=== PATIENT | male | born 1940 | race Caucasian/White ===

== ENCOUNTER → 2017-08-24 | Outpatient (CLI) | payer MEDICARE ==
[~2017-08-24] MED LIST: BENADRYL ALLERG25 M5 PO; PREVACID SOLUTA30 MG PO; PRILOSEC40 M1 PO
== END | disposition home or self-care (01) ==
LOC: CT 01:07
DX: K76.0 Fatty (change of) liver, not elsewhere classified (principal); N28.1 Cyst of kidney, acquired

== ENCOUNTER 2020-10-20 08:31 | Emergency (ER) | payer OTHER ==
[~2020-10-20] VITALS: Ht 170.1 cm; Wt 83.9 kg
[2020-10-20 09:02] LABS: BILIRUBIN Negative (Negative); BLOOD Trace-Intact (Negative); CLARITY Clear (Clear); COLOR Yellow (Yellow); GLUCOSE 3+ (Negative); KETONE Trace (Negative); LEUKO ESTERASE Negative (Negative); NITRITE Negative (Negative)
[2020-10-20 09:16] LABS: RBC 16-20 rbc/hpf (0-2)
[2020-10-20 09:21] LABS: BASO # 0.1 10*3/uL (0.0-0.1); BASO % 0.9 % (0.0-1.0); EOS # 0.1 10*3/uL (0.0-0.4); EOS % 1.7 % (1.0-4.0); HEMATOCRIT 41.3 % (42.0-52.0); LYMPH # 1.2 10*3/uL (1.3-4.4); LYMPH % 18.2 % (27.0-41.0); MEAN CORPUSCULAR HGB 31.4 pg (27.0-31.0); MEAN CORPUSCULAR HGB CONC 34.1 g/dl (33.0-37.0); MEAN PLATELET VOLUME 8.5 fl (9.6-12.3); MONO # 0.5 10*3/uL (0.1-1.0); MONO % 7.9 % (3.0-9.0); NEUT # 4.6 10*3/uL (2.3-7.9); PLATELET COUNT AUTOMATED 318 10*3/uL (130-400); RED BLOOD COUNT 4.49 10*6/uL (4.50-5.90); RED CELL DISTRI WIDTH 12.7 % (0-14.5); WHITE BLOOD COUNT 6.4 10*3/uL (4.8-10.8)
[2020-10-20 09:33] LABS: ACT PARTIAL THROMBO TIME 26.6 SECONDS (20.0-32.1)
[2020-10-20 09:36] LABS: ALBUMIN 3.7 gm/dl (3.1-4.5); ALKALINE PHOSPHATASE 86 U/L (45-117); BUN 14 mg/dl (7-24); CHLORIDE 102 mmol/L (98-107); CREATININE 1.31 mg/dL (0.70-1.30); LIPASE 74 U/L (73-393); POTASSIUM 4.1 mmol/L (3.5-5.1); SGOT/AST 11 IU/L (3-35); SGPT/ALT 28 U/L (12-78); SODIUM 132 mmol/L (136-145); TOTAL PROTEIN 7.4 gm/dL (6.4-8.2)
[2020-10-20 09:37] LABS: TROPONIN I < 0.015 ng/ml (<0.045)
== END 2020-10-20 12:16 | disposition home or self-care (01) ==
LOC: ED 08:31
PROVIDERS: Emergency Medicine
DX: N20.1 Calculus of ureter (principal); Z79.899 Other long term (current) drug therapy; Z98.890 Other specified postprocedural states

== ENCOUNTER → 2022-08-03 | Outpatient (CLI) | payer OTHER ==
[2022-08-03 15:11] LABS: CREATININE 1.48 mg/dL (0.70-1.30)
== END | disposition home or self-care (01) ==
LOC: LAB 13:55 → CT 13:55
PROVIDERS: Radiology Diagnostic Radiology; ATTEND Nurse Practitioner Family
DX: Z01.812 Encounter for preprocedural laboratory examination (principal); R10.9 Unspecified abdominal pain; N28.1 Cyst of kidney, acquired

== ENCOUNTER → 2023-07-10 | Outpatient (CLI) | payer OTHER | END | disposition home or self-care (01) | LOC: CARD 02:08 | PROVIDERS: ATTEND Family Medicine | DX: I08.0 Rheumatic disorders of both mitral and aortic valves (principal) ==

== ENCOUNTER 2023-12-04 08:20 | Inpatient (IN) | payer OTHER ==
[~2023-12-04] VITALS: Ht 167.6 cm; Wt 88.5 kg
[2023-12-04 08:38] VITALS: BP 109/51
[2023-12-04 08:52] LABS: BASO % 0.2 % (0.0-1.0); EOS % 0.3 % (1.0-4.0); HEMATOCRIT 39.5 % (42.0-52.0); LYMPH # 0.8 10*3/uL (1.3-4.4); LYMPH % 6.6 % (27.0-41.0); MEAN CELL VOLUME 96.6 fl (80.0-94.0); MEAN CORPUSCULAR HGB 31.8 pg (27.0-31.0); MEAN CORPUSCULAR HGB CONC 32.9 g/dl (33.0-37.0); MEAN PLATELET VOLUME 9.3 fl (9.6-12.3); MONO # 1.1 10*3/uL (0.1-1.0); MONO % 9.2 % (3.0-9.0); NEUT # 9.8 10*3/uL (2.3-7.9); NEUT % 83.4 % (47.0-73.0); PLATELET COUNT AUTOMATED 248 10*3/uL (130-400); RED BLOOD COUNT 4.09 10*6/uL (4.50-5.90); WHITE BLOOD COUNT 11.8 10*3/uL (4.8-10.8)
[2023-12-04 09:05] LABS: ACT PARTIAL THROMBO TIME 33.6 SECONDS (20.0-32.1)
[2023-12-04 09:15] LABS: POTASSIUM 4.2 mmol/L (3.4-5.1); TOTAL PROTEIN 6.6 gm/dL (6.0-8.0)
[2023-12-04] MEDS ORDERED: ZESTRIL20 MG PO (09:36)
[2023-12-04] MEDS ORDERED: NEURONTIN300 MG PO (09:36)
[2023-12-04] MEDS ORDERED: REMERON15 M2 PO (09:36)
[2023-12-04] MEDS ORDERED: NORVASC10 MG PO (09:37)
[2023-12-04] MEDS ORDERED: MELATONIN3 MG PO (09:37)
[2023-12-04] MEDS ORDERED: ASPIRIN CHILDRE81 MG PO (09:37)
[2023-12-04] MEDS ORDERED: ZOCOR40 MG PO (09:37)
[2023-12-04] MEDS ORDERED: METFORMIN HYD1000 MG PO (09:38)
[2023-12-04] MEDS ORDERED: GLYBURIDE5 MG PO (09:38)
[2023-12-04] MEDS ORDERED: D3 DOTS50 MCG PO (09:39)
[2023-12-04] MEDS ORDERED: PROAIR RESPICL90 MCG INH (09:41)
[2023-12-04] MEDS ORDERED: Ceftriaxone Sodium 1 GM/10 ML SYR IV ONE (09:45)
[2023-12-04] MEDS ORDERED: AZITHROMYCIN 250 ML IV ONE (09:45)
[2023-12-04] MEDS ORDERED: SODIUM CHLORIDE 0.9% 1,000 ML IV SCH ×2 (09:45→15:35)
[2023-12-04 09:54] VITALS: BP 91/52
[2023-12-04] MEDS ORDERED: Ondansetron Hydrochloride 4 MG/2 ML VIAL IV PRN (11:15)
[2023-12-04] MEDS ORDERED: Magnesium Hydroxide 30 ML UDC PO PRN (11:15)
[2023-12-04] MEDS ORDERED: DEXTROSE 10 % IN WATER 250 ML IV PRN (11:15)
[2023-12-04] MEDS ORDERED: BISACODYL 10 MG SUPP R PRN (11:15)
[2023-12-04] MEDS ORDERED: ACETAMINOPHEN 325 MG TAB PO PRN (11:15)
[2023-12-04] MEDS ORDERED: ACETAMINOPHEN 650 MG SUPP R PRN (11:15)
[2023-12-04] MEDS ORDERED: Acetaminophen/Hydrocodone 5 MG/325 MG TABLET PO PRN (11:15)
[2023-12-04] MEDS ORDERED: MORPHINE Sulfate 2 MG/ML SYR IV PRN (11:15)
[2023-12-04] MEDS ORDERED: BISACODYL 5 MG TAB PO PRN (11:15)
[2023-12-04] MEDS ORDERED: TEMAZEPAM 15 MG CAP PO PRN (11:15)
[2023-12-04] MEDS ORDERED: Albuterol Sulf/Ipratropium 3 ML VIAL NEB SCH (11:30)
[2023-12-04] MEDS ORDERED: INSULIN LISPRO 1 UNIT/0.01 ML SQ SCH (11:30)
[2023-12-04] MEDS ORDERED: methylPREDNISolone sod succ 40 MG IV SCH (11:30)
[2023-12-04] MEDS ORDERED: methylPREDNISolone sod succ 40 MG VIAL IV SCH (12:00)
[2023-12-04] MEDS ORDERED: SODIUM CHLORIDE 0.9% 1,000 ML IV ONE (12:15)
[2023-12-04] MEDS ORDERED: SODIUM CHLORIDE 0.9% 1,500 ML IV ONE (13:35)
[2023-12-04 13:46] VITALS: BP 123/63
[2023-12-04] MEDS ORDERED: Nicotine 14 MG PATCH T SCH (15:00)
[2023-12-04 15:47] VITALS: BP 131/51
[2023-12-04 20:00] VITALS: BP 127/77
[2023-12-04] MEDS ORDERED: HEPARIN SODIUM 5,000 UNIT/ML VIAL SC SCH (22:00)
[2023-12-05] VITALS: BP 112/46
[2023-12-05 06:27] LABS: ACT PARTIAL THROMBO TIME 35.7 SECONDS (20.0-32.1); HEMATOCRIT 34.3 % (42.0-52.0); MEAN CELL VOLUME 98.6 fl (80.0-94.0); MEAN CORPUSCULAR HGB 32.2 pg (27.0-31.0); MEAN CORPUSCULAR HGB CONC 32.7 g/dl (33.0-37.0); MEAN PLATELET VOLUME 9.3 fl (9.6-12.3); PLATELET COUNT AUTOMATED 214 10*3/uL (130-400); RED BLOOD COUNT 3.48 10*6/uL (4.50-5.90); RED CELL DISTRI WIDTH 13.1 % (0-14.5); WHITE BLOOD COUNT 9.6 10*3/uL (4.8-10.8)
[2023-12-05 06:28] LABS: MANUAL DIFF REFLEX YES
[2023-12-05 06:31] LABS: POTASSIUM 4.3 mmol/L (3.4-5.1)
[2023-12-05 07:10] LABS: PLATELET SUFFICIENCY NORMAL (NORMAL); POLYCHROMASIA SLIGHT; TOTAL CELLS COUNTED 100 #CELLS
[2023-12-05 07:11] LABS: BURR CELLS MODERATE; OVALOCYTES FEW; SCHISTOCYTES FEW
[2023-12-05 08:00] VITALS: BP 138/80
[2023-12-05 08:05] LABS: VITAMIN D, 25-HYDROXY 54.8 ng/mL (30-100)
[2023-12-05] MEDS ORDERED: AZITHROMYCIN 250 ML IV SCH (09:00)
[2023-12-05] MEDS ORDERED: ASPIRIN, CHEWABLE 81 MG TAB PO SCH (10:00)
[2023-12-05] MEDS ORDERED: GUAIFENESIN 600 MG TAB ER PO SCH (10:00)
[2023-12-05] MEDS ORDERED: Ceftriaxone Sodium 1 GM in SYRINGE INFUSION 10 ML IV SCH (10:00)
[2023-12-05 12:00] VITALS: BP 94/65
[2023-12-05 16:00] VITALS: BP 130/52
[2023-12-05 20:00] VITALS: BP 138/54
[2023-12-05] MEDS ORDERED: Melatonin 3 MG TABLET PO SCH (22:00)
[2023-12-05] MEDS ORDERED: SIMVASTATIN 5 MG TABLET PO SCH (22:00)
[2023-12-05] MEDS ORDERED: GABAPENTIN 300 MG CAP PO SCH (22:00)
[2023-12-06] VITALS: BP 130/50
[2023-12-06 06:56] LABS: HEMATOCRIT 32.3 % (42.0-52.0); MEAN CELL VOLUME 98.5 fl (80.0-94.0); MEAN CORPUSCULAR HGB 31.4 pg (27.0-31.0); MEAN CORPUSCULAR HGB CONC 31.9 g/dl (33.0-37.0); MEAN PLATELET VOLUME 9.1 fl (9.6-12.3); PLATELET COUNT AUTOMATED 244 10*3/uL (130-400); RED BLOOD COUNT 3.28 10*6/uL (4.50-5.90); RED CELL DISTRI WIDTH 13.1 % (0-14.5); WHITE BLOOD COUNT 8.5 10*3/uL (4.8-10.8)
[2023-12-06 06:58] LABS: MANUAL DIFF REFLEX YES
[2023-12-06 07:41] LABS: POTASSIUM 4.5 mmol/L (3.4-5.1)
[2023-12-06 07:44] LABS: ATYPICAL LYMPHS 1 % (0-0); BURR CELLS FEW; OVALOCYTES FEW; PLATELET SUFFICIENCY NORMAL (NORMAL); POLYCHROMASIA SLIGHT; ROULEAUX SLIGHT; TOTAL CELLS COUNTED 100 #CELLS
[2023-12-06 08:00] VITALS: BP 132/55
[2023-12-06 12:00] VITALS: BP 132/53
[2023-12-06] MEDS ORDERED: Ceftriaxone Sodium 1 GM in SYRINGE INFUSION 10 ML IV ONE (15:50)
[2023-12-06 16:00] VITALS: BP 134/55
[2023-12-06 20:00] VITALS: BP 148/74
[2023-12-06] MEDS ORDERED: methylPREDNISolone sod succ 40 MG VIAL IV SCH (22:00)
[2023-12-07 00:39] VITALS: BP 146/82
[2023-12-07 08:00] VITALS: BP 137/53
[2023-12-07 12:00] VITALS: BP 165/60
[2023-12-07] MEDS ORDERED: INFUSION IV SCH (15:00)
[2023-12-07] MEDS ORDERED: CEFTRIAXONE SODIUM IV SCH (15:00)
[2023-12-07 16:00] VITALS: BP 161/57
[2023-12-07] MEDS ORDERED: INSULIN LISPRO 1 UNIT/0.01 ML SQ SCH (16:30)
[2023-12-07 20:00] VITALS: BP 161/63
[2023-12-08] VITALS: BP 141/66
[2023-12-08 08:00] VITALS: BP 155/59
[2023-12-08 12:00] VITALS: BP 160/64
[2023-12-08 16:00] VITALS: BP 157/59
[2023-12-08] MEDS ORDERED: methylPREDNISolone sod succ 40 MG VIAL IV SCH (16:30)
[2023-12-08 20:00] VITALS: BP 155/55
[2023-12-09] VITALS: BP 136/89
[2023-12-09 07:27] LABS: BASO % 0.2 % (0.0-1.0); EOS % 0.1 % (1.0-4.0); HEMATOCRIT 34.2 % (42.0-52.0); LYMPH # 1.5 10*3/uL (1.3-4.4); LYMPH % 18.1 % (27.0-41.0); MEAN CELL VOLUME 95.8 fl (80.0-94.0); MEAN CORPUSCULAR HGB 31.4 pg (27.0-31.0); MEAN CORPUSCULAR HGB CONC 32.7 g/dl (33.0-37.0); MONO # 0.7 10*3/uL (0.1-1.0); MONO % 8.1 % (3.0-9.0); NEUT % 70.8 % (47.0-73.0); PLATELET COUNT AUTOMATED 281 10*3/uL (130-400); RED BLOOD COUNT 3.57 10*6/uL (4.50-5.90); RED CELL DISTRI WIDTH 12.5 % (0-14.5); WHITE BLOOD COUNT 8.5 10*3/uL (4.8-10.8)
[2023-12-09 08:00] VITALS: BP 162/64
[2023-12-09 08:10] LABS: BUN 28 mg/dl (9-23); CHLORIDE 100 mmol/L (98-107); POTASSIUM 4.4 mmol/L (3.4-5.1)
[2023-12-09 12:00] VITALS: BP 159/65
[2023-12-09] MEDS ORDERED: PREDNISONE50 MG PO (13:10)
== END 2023-12-09 13:40 | disposition home or self-care (01) | DRG 871 ==
LOC: ED 08:20 → EDHOLD 09:44 → 4E 09:44 → EDHOLD 09:45 → 4E 10:24
PROVIDERS: Emergency Medicine; Internal Medicine; Student in an Organized Health Care Education/Training Program; ADMIT Internal Medicine; ATTEND Internal Medicine
DX: A41.9 Sepsis, unspecified organism (principal); J18.9 Pneumonia, unspecified organism; J96.01 Acute respiratory failure with hypoxia; N17.0 Acute kidney failure with tubular necrosis; E87.1 Hypo-osmolality and hyponatremia; J44.1 Chronic obstructive pulmonary disease with (acute) exacerbation; E44.1 Mild protein-calorie malnutrition; E87.20 Acidosis, unspecified; J44.0 Chronic obstructive pulmonary disease with (acute) lower respiratory infection; I10 Essential (primary) hypertension; E78.5 Hyperlipidemia, unspecified; R65.20 Severe sepsis without septic shock; E11.65 Type 2 diabetes mellitus with hyperglycemia; F17.210 Nicotine dependence, cigarettes, uncomplicated; D64.9 Anemia, unspecified; Z91.040 Latex allergy status; Z83.3 Family history of diabetes mellitus; Z68.31 Body mass index [BMI] 31.0-31.9, adult

== ENCOUNTER → 2024-02-18 | Outpatient (CLI) | payer OTHER ==
[~2024-02-18] MED LIST changes: +ASPIRIN CHILDRE81 MG PO; +D3 DOTS50 MCG PO; +GLYBURIDE5 MG PO; +MELATONIN3 MG PO; +METFORMIN HYD1000 MG PO; +NEURONTIN300 MG PO; +NORVASC10 MG PO; +PREDNISONE50 MG PO; +PROAIR RESPICL90 MCG INH; +REMERON15 M2 PO; +ZESTRIL20 MG PO; +ZOCOR40 MG PO
[2024-02-18 12:05] LABS: POTASSIUM 4.6 mmol/L (3.4-5.1)
== END | disposition home or self-care (01) ==
LOC: LAB 10:56
PROVIDERS: ATTEND Orthopaedic Surgery
DX: M54.50 Low back pain, unspecified (principal); R53.83 Other fatigue